=== PATIENT | male | born 1995 | race Caucasian/White ===

== ENCOUNTER 2017-12-17 03:42 | Observation (INO) | payer SELFPAY ==
[~2017-12-17] VITALS: Ht 157.5 cm; Wt 63.6 kg
[2017-12-17] VITALS (7 sets, daily range): BP systolic 118–139; BP diastolic 65–86; PULSE 87–107; RESP 17–22; TEMP 98.4–99; O2SAT 95–100
--- NOTE | 2017-12-17 04:14 | PD ---
HPI Chief Complaint: Injury Time Seen by Provider: 03:58 Travel History International Travel<30 days: No Contact w/Intl Traveler<30days: No Traveled to known affect area: No History of Present Illness HPI Is a 22-year-old male with no past medical history, presents today with complaints of left forearm, elbow, humerus pain. Patient states he fell several hours ago. He reports severe pain and inability to move secondary to pain. He denies any numbness or tingling to the distal arm. He reports the pain as a 9-10 out of 10. He reports previously breaking his wrist as a child. No other complaints at the time of my examination. He reports no other injuries. [facility] Past Medical History Medical History: Denies Significant Hx Tetanus Vaccination: Never Vaccinated Influenza Vaccination: No Past Surgical History Surgical History: No Previous Surgery Social History Alcohol Use: Yes Tobacco Use: No Substance Use: No Allergies-Medications (Allergen,Severity, Reaction): Coded Allergies: No Known Allergies (Unverified , 12/17/17) Reported Meds & Prescriptions Reported Meds & Active Scripts Active No Active Prescriptions or Reported Medications Review of Systems Except as stated in HPI: all other systems reviewed are Neg General / Constitutional: No: Fever HENT: No: Neck Pain Cardiovascular: No: Chest Pain or Discomfort, Palpitations Respiratory: No: Cough, Shortness of Breath Gastrointestinal: No: Nausea, Vomiting, Abdominal Pain Musculoskeletal: Positive: Limited ROM (Secondary to pain.), Pain (Left forearm , elbow, distal humerus), No: Weakness Neurologic: No: Weakness, Dizziness, Headache, Paresthesia, Sensory Disturbance Physical Exam Narrative GENERAL: Well-nourished, well-developed patient, in no acute respiratory distress.. SKIN: Focused skin assessment warm/dry. HEAD: Normocephalic. EYES: No scleral icterus. No injection or drainage. NECK: Supple, trachea midline. No JVD or lymphadenopathy. CARDIOVASCULAR: Regular rate and rhythm without murmurs, gallops, or rubs. RESPIRATORY: Breath sounds equal bilaterally. No accessory muscle use. GASTROINTESTINAL: Abdomen soft, non-tender, nondistended. MUSCULOSKELETAL: On examination patient's left upper extremity, there is swelling to his left lateral elbow. There is no obvious deformity however we are unable to range it secondary to the pain. Patient also has pain below his elbow in his proximal radius ulna. Patient also has pain in his distal humerus. Cap refill is less than 2 seconds. He has full range of motion with his distal fingers 5. There is normal sensation over his fingertips. He has a palpable left radial pulse. NEUROLOGICAL: Awake and alert. Cranial nerves II through XII intact. Motor and sensory grossly within normal limits. Movement limited on the left upper extremity secondary to the pain. Patient had good left wrist flexion and dorsiflexion. Five out of 5 muscle strength in all muscle groups. Normal speech. Data Data Last Documented VS Vital Signs Date Time Temp Pulse Resp B/P (MAP) Pulse Ox O2 Delivery O2 Flow Rate FiO2 12/17/17 05:08 100 12/17/17 05:07 2.00 12/17/17 05:05 87 18 137/86 (103) Nasal Cannula 12/17/17 03:46 98.4 Orders Orders Elbow, Limited (Ap&Lat) (12/17/17 03:58) Forearm (2vws) (12/17/17 03:58) Humerus (Min 2vws) (12/17/17 03:58) Etomidate Inj (Amidate Inj) (12/17/17 04:30) Elbow, Limited (Ap&Lat) (12/17/17 03:58) Consult Orthopedic (12/17/17 ) Place In Observation (12/17/17 ) Vital Signs (Adult) Q4H (12/17/17 05:21) Activity Oob Ad Cheryl (12/17/17 05:21) Diet Regular Basic (12/17/17 Breakfast) Sodium Chlor 0.9% 1000 Ml Inj (Ns 1000 M (12/17/17 05:21) Sodium Chloride 0.9% Flush (Ns Flush) (12/17/17 05:30) Sodium Chloride 0.9% Flush (Ns Flush) (12/17/17 09:00) Ondansetron Inj (Zofran Inj) (12/17/17 05:30) Comprehensive Metabolic Panel (12/18/17 06:00) Complete Blood Count With Diff (12/18/17 06:00) Case Management Consult (12/17/17 05:21) Scd Bilateral/Knee High LISA.BID (12/17/17 05:21) Dwayne Bilateral/Knee High LISA.QSHIFT (12/17/17 05:24) Acetaminophen (Tylenol) (12/17/17 05:30) Acetamin-Hydrocod 325-5 Mg (Harvey 5-325 (12/17/17 05:30) Morphine Inj (Morphine Inj) (12/17/17 05:30) Docusate Sodium-Senna (Anca-Colace) (12/17/17 09:00) Magnesium Hydroxide Liq (Milk Of Magnesi (12/17/17 05:30) Sennosides (Senokot) (12/17/17 05:30) Bisacodyl Supp (Dulcolax Supp) (12/17/17 05:30) Lactulose Liq (Lactulose Liq) (12/17/17 05:30) Admit Order (Ed Use Only) (12/17/17 05:45) [facility] Medical Decision Making Medical Screen Exam Complete: Yes Emergency Medical Condition: Yes Differential Diagnosis Elbow dislocation versus fracture versus proximal radius ulna fracture versus distal humerus fracture Narrative Course 22-year-old male presents with left elbow pain. Patient was walking downstairs when he had a mechanical fall after slipping. The patient presents with obvious deformity to his left elbow. X-ray shows a posterior left elbow dislocation. Patient had this reduced using etomidate. Successful reduction occurred however it was very lax and would slip back out again. It is completely reduce at this time. He will be admitted to the hospital under observation for orthopedic consult. Procedures Procedure Narrative After consents and discussion of procedure, patient was medicated with 15 mg of etomidate. Patient had successful reduction of the left elbow dislocation. There was laxity in the joint and it required splinting to keep it from slipping back out again. Patient tolerated procedure well. He was neurovascularly intact prior to and after the procedure. Postreduction films show successful reduction. Diagnosis Primary Impression: Dislocation of left elbow Additional Impression: Slip and fall. Admitting Information Admitting Physician Requests: Observation Scripts No Active Prescriptions or Reported Meds Boo Hooper MD Dec 17, 2017 04:14
--- NOTE | 2017-12-17 04:27 | RADRPT ---
EXAM DATE/TIME: 12/17/2017 04:04 [facility] COMPARISON: No previous studies available for comparison. INDICATIONS : Left arm pain from a fall. MEDICAL HISTORY : None. SURGICAL HISTORY : None. ENCOUNTER: Initial ACUITY: 1 day PAIN SCORE: 10/10 LOCATION: Left arm FINDINGS: Two view examination of the left humerus demonstrates no evidence of fracture or dislocation. Bony m ineralization is normal. The soft tissue structures are intact. CONCLUSION: Intact humerus. See the elbow reported separately. Mikel Pabon Jr., MD on December 17, 2017 at 4:25 Board Certified Radiologist. This report was verified electronically.
--- NOTE | 2017-12-17 04:27 | RADRPT ---
EXAM DATE/TIME: 12/17/2017 04:10 [facility] COMPARISON: No previous studies available for comparison. INDICATIONS : Left arm pain from a fall. MEDICAL HISTORY : None. SURGICAL HISTORY : None. ENCOUNTER: Initial ACUITY: 1 day PAIN SCORE: 10/10 LOCATION: Left arm FINDINGS: 2 views of the elbow reveal posterior dislocation of the radius and ulna relative to the humerus. No discrete fracture observed. No radiopaque foreign bodies. CONCLUSION: Posterior dislocation of elbow joint. Mikel Pabon Jr., MD on December 17, 2017 at 4:26 Board Certified Radiologist. This report was verified electronically.
[2017-12-17] MEDS ORDERED: ETOMIDATE 20 MG/10 ML VIAL IV PUSH ONE (04:30)
[2017-12-17] MEDS ORDERED: SODIUM CHLOR 0.9% 1000 ML INJ 1,000 ML IV SCH (05:21)
[2017-12-17] MEDS ORDERED: LACTULOSE SYRUP 20 GM/30 ML CUP PO PRN (05:30)
[2017-12-17] MEDS ORDERED: SENNOSIDES 8.6 MG TAB PO PRN (05:30)
[2017-12-17] MEDS ORDERED: SODIUM CHLORIDE 0.9% FLUSH 10 ML FLUSH IV FLUSH PRN (05:30)
[2017-12-17] MEDS ORDERED: ACETAMINOPHEN 325 MG TAB PO PRN (05:30)
[2017-12-17] MEDS ORDERED: ONDANSETRON HCL 4 MG/2 ML VIAL IVP PRN (05:30)
[2017-12-17] MEDS ORDERED: BISACODYL 10 MG SUPP RECTAL PRN (05:30)
[2017-12-17] MEDS ORDERED: MORPHINE SULFATE 2 MG/ML SYRINGE IV PUSH PRN (05:30)
[2017-12-17] MEDS ORDERED: MAGNESIUM HYDROXIDE SUSP 30 ML CUP PO PRN (05:30)
--- NOTE | 2017-12-17 05:39 | RADRPT ---
EXAM DATE/TIME: 12/17/2017 04:56 [facility] COMPARISON: ELBOW LEFT LIMITED (AP & LAT), December 17, 2017, 4:10. INDICATIONS : Post reduction of a left elbow dislocation. MEDICAL HISTORY : None. SURGICAL HISTORY : None. ENCOUNTER: Subsequent ACUITY: 1 day PAIN SCORE: 10/10 LOCATION: Left elbow FINDINGS: 2 views of the left elbow show successful reduction of the previously seen dislocation. No fracture s een. CONCLUSION: Successful reduction. No fracture observed. Mikel Pabon Jr., MD on December 17, 2017 at 5:37 Board Certified Radiologist. This report was verified electronically.
--- NOTE | 2017-12-17 05:39 | RADRPT ---
EXAM DATE/TIME: 12/17/2017 04:59 [facility] COMPARISON: No previous studies available for comparison. INDICATIONS : Left arm pain from a fall. MEDICAL HISTORY : None. SURGICAL HISTORY : None. ENCOUNTER: Initial ACUITY: 1 day PAIN SCORE: 10/10 LOCATION: Left arm FINDINGS: Two view examination of the left forearm demonstrates no evidence of fracture or dislocation. Bony m ineralization is normal. The soft tissue structures are intact. CONCLUSION: Unremarkable examination of the left forearm. Mikel Pabon Jr., MD on December 17, 2017 at 5:37 Board Certified Radiologist. This report was verified electronically.
--- NOTE | 2017-12-17 08:17 | HHI.HP ---
[facility] Service [facility] Primary Care Physician No Primary Care Physician Admission Diagnosis left elbow dislocation Diagnoses: Chief Complaint: left elbow fall after slip and fall Travel History International Travel<30 Days: No Contact w/Intl Traveler <30 Da: No Traveled to Known Affected Are: No History of Present Illness Is a 22-year-old male with no past medical history, presents today with complaints of left forearm, elbow, humerus pain. Patient states he fell several hours ago. He reports severe pain and inability to move secondary to pain. He denies any numbness or tingling to the distal arm. He reports the pain as a 9-10 out of 10. He reports previously breaking his wrist as a child. No other complaints at the time of my examination. He reports no other injuries. Review of Systems Except as stated in HPI: all other systems reviewed are Neg Past Family Social History Past Medical History No PMH , healthy Past Surgical History No surgical history Reported Medications Last Impressions Radius/Ulna X-Ray 12/17/17357 Signed Impressions: Service Date/Time: Sunday, December 17, 2017 04:59 - CONCLUSION: Unremarkable examination of the left forearm. Mikel Pabon Jr., MD Humerus X-Ray 12/17/178 Signed Impressions: Service Date/Time: Sunday, December 17, 2017 04:04 - CONCLUSION: Intact humerus. See the elbow reported separately. Mikel Pabon Jr., MD Elbow X-Ray 12/17/178 Signed Impressions: Service Date/Time: Sunday, December 17, 2017 04:56 - CONCLUSION: Successful reduction. No fracture observed. Mikel Pabon Jr., MD Allergies: Coded Allergies: No Known Allergies (Unverified , 12/17/17) Family History Family is healthy Social History Alcohol Use: Yes Tobacco Use: No Substance Use: No Physical Exam Vital Signs Vital Signs Date Time Temp Pulse Resp B/P (MAP) Pulse Ox O2 Delivery O2 Flow Rate FiO2 12/17/17 05:08 100 12/17/17 05:07 100 2.00 12/17/17 05:05 87 18 137/86 (103) 100 Nasal Cannula 2.00 12/17/17 03:46 98.4 107 22 139/65 89 97 Physical Exam GENERAL: This is a well-nourished, well-developed patient, in no apparent distress. SKIN: No rashes, ecchymoses or lesions. Cool and dry. HEAD: Atraumatic. Normocephalic. No temporal or scalp tenderness. EYES: Pupils equal round and reactive. Extraocular motions intact. No scleral icterus. No injection or drainage. ENT: Nose without bleeding, purulent drainage or septal hematoma. Throat without erythema, tonsillar hypertrophy or exudate. Uvula midline. Airway patent. NECK: Trachea midline. No JVD or lymphadenopathy. Supple, nontender, no meningeal signs. CARDIOVASCULAR: Regular rate and rhythm without murmurs, gallops, or rubs. RESPIRATORY: Clear to auscultation. Breath sounds equal bilaterally. No wheezes , rales, or rhonchi. GASTROINTESTINAL: Abdomen soft, non-tender, nondistended. No hepato-splenomegaly , or palpable masses. No guarding. MUSCULOSKELETAL: Left elbow in sling. neurovascular intact. Extremities without clubbing, cyanosis, or edema. No joint tenderness, effusion, or edema noted. No calf tenderness. Negative Homans sign bilaterally. NEUROLOGICAL: Awake and alert. Cranial nerves II through XII intact. Motor and sensory grossly within normal limits. Five out of 5 muscle strength in all muscle groups. Normal speech. Imaging Last Impressions Radius/Ulna X-Ray 12/17/17357 Signed Impressions: Service Date/Time: Sunday, December 17, 2017 04:59 - CONCLUSION: Unremarkable examination of the left forearm. Mikel Pabon Jr., MD Humerus X-Ray 12/17/178 Signed Impressions: Service Date/Time: Sunday, December 17, 2017 04:04 - CONCLUSION: Intact humerus. See the elbow reported separately. Mikel Pabon Jr., MD Elbow X-Ray 12/17/178 Signed Impressions: Service Date/Time: Sunday, December 17, 2017 04:56 - CONCLUSION: Successful reduction. No fracture observed. MD Fer Rogers Jr. VTE Risk Assessment Caprini VTE Risk Assessment: Mod/High Risk (score >= 2) Caprini Risk Assessment Model Point Value = 1 Point Value = 2 Point Value = 3 Point Value = 5 Age 41-60 Minor surgery BMI > 25 kg/m2 Swollen legs Varicose veins or History of unexplained or recurrent spontaneous Oral contraceptives or hormone replacement Sepsis (< 1 month) Serious lung disease, including pneumonia (< 1 month) Abnormal pulmonary function Acute myocardial infarction Congestive heart failure (< 1 month) History of inflammatory bowel disease Medical patient at bed rest Age 61-74 Arthroscopic surgery Major open surgery (> 45 min) Laparoscopic surgery (> 45 min) Malignancy Confined to bed (> 72 hours) Immobilizing plaster cast Central venous access Age >= 75 History of VTE Family history of VTE Factor V Leiden Prothrombin [id number] Lupus anticoagulant Anticardiolipin antibodies Elevated serum homocysteine Heparin-induced thrombocytopenia Other congenital or acquired thrombophilia Stroke (< 1 month) Elective arthroplasty Hip, pelvis, or leg fracture Acute spinal cord injury (< 1 month) Prophylaxis Regimen Total Risk Factor Score Risk Level Prophylaxis Regimen 0-1 Low Early ambulation 2 Moderate Order ONE of the following: *Sequential Compression Device (SCD) *Heparin 5000 units SQ BID 3-4 Higher Order ONE of the following medications: *Heparin 5000 units SQ TID *Enoxaparin/Lovenox 40 mg SQ daily (WT < 150 kg, CrCl > 30 mL/min) *Enoxaparin/Lovenox 30 mg SQ daily (WT < 150 kg, CrCl > 10-29 mL/min) *Enoxaparin/Lovenox 30 mg SQ BID (WT < 150 kg, CrCl > 30 mL/min) AND/OR *Sequential Compression Device (SCD) 5 or more Highest Order ONE of the following medications: *Heparin 5000 units SQ TID (Preferred with Epidurals) *Enoxaparin/Lovenox 40 mg SQ daily (WT < 150 kg, CrCl > 30 mL/min) *Enoxaparin/Lovenox 30 mg SQ daily (WT < 150 kg, CrCl > 10-29 mL/min) *Enoxaparin/Lovenox 30 mg SQ BID (WT < 150 kg, CrCl > 30 mL/min) AND *Sequential Compression Device (SCD) Assessment and Plan Assessment and Plan 22-year-old male presents with left elbow pain. Patient was walking downstairs when he had a mechanical fall after slipping. The patient presents with obvious deformity to his left elbow. X-ray shows a posterior left elbow dislocation. Patient had this reduced using etomidate. Successful reduction occurred however it was very lax and would slip back out again. It is completely reduce at this time. He will be admitted to the hospital under observation for orthopedic consult. Slip and fall. Dislocation of left elbow S/p reduction in the ED Ortho was consulted Discussed with the patient, nurse Patient wants to go home today. DC home when cleared by ortho Discharge plan: Spoke with Dr Bond, ortho cleared patient for DC. DC home in stable condition to follow up as OP with PCP and consultants. Diet regular as tolerated Medications per medication reconciliation. Activity ad linda. as tolerated. Nonweightbearing on the affected arm until cleared by orthopedics Jennifer Barreto MD Dec 17, 2017 08:17
[2017-12-17] MEDS ORDERED: DOCUSATE SODIUM 50 MG/SENNA 8.6 MG TAB PO SCH (09:00)
[2017-12-17] MEDS ORDERED: SODIUM CHLORIDE 0.9% FLUSH 10 ML FLUSH IV FLUSH SCH (09:00)
[2017-12-17] MEDS: ACETAMINOPHEN/HYDROcodone 325 MG/5 MG TAB PO PRN ×2 (12:18→17:39)
--- NOTE | 2017-12-17 12:57 | HHI.DCPOC ---
Discharge Care Plan Goals to Promote Your Health * To prevent worsening of your condition and complications * To maintain your health at the optimal level Directions to Meet Your Goals Take your medications as prescribed Follow your dietary instruction Follow activity as directed Keep your appointments as scheduled Take your immunizations and boosters as scheduled If your symptoms worsen call your PCP, if no PCP go to Urgent Care Center or Emergency Room Smoking is Dangerous to Your Health. Avoid second hand smoke Call the 24-hour hour crisis hotline for domestic abuse at Jennifer Barreto MD Dec 17, 2017 12:57
== END 2017-12-17 17:45 | disposition home or self-care (01) ==
LOC: NEPE 03:42 → NEDA 05:46 → H6YA 08:40
PROVIDERS: ADMIT Hospitalist; ATTEND Hospitalist
DX: S53.105A Unspecified dislocation of left ulnohumeral joint, initial encounter (principal); W01.0XXA Fall on same level from slipping, tripping and stumbling without subsequent striking against object, initial encounter
CPT/HCPCS: 24600; 73060; 73070; 73090; 96360; 96361; 99285; G0378; J7030